=== PATIENT | male | born 1995 | race Caucasian/White ===

== ENCOUNTER 2016-08-08 14:28 | Emergency (ER) | payer BC ==
[2016-08-08 15:08] VITALS: BP 141/74; PULSE 64; RESP 18; TEMP 98.9
--- NOTE | 2016-08-08 15:28 | ED ---
Skin/Abscess/FB HPI - General Chief complaint: Skin/Abscess/Foreign Body Stated complaint: Rash on arms Time Seen by Provider: 08/08/16 15:17 Source: patient, RN notes reviewed Mode of arrival: ambulatory Limitations: no limitations - History of Present Illness Initial comments: Patient is a 21-year-old male presents to the emergency room for evaluation of rash. Patient states rash began about 2 weeks ago. Patient states the rash is extremely itchy. Patient denies putting anything on top of the rash or taking any certain medications to help with symptoms. Patient states the rash began on his bilateral arms and to his legs. Patient states that he was with his friend about a week ago who was recently diagnosed with scabies. Patient denies any new detergents, body washes, shampoos. Patient denies contact with any new plants in the house or animals. Patient denies fevers or chills. Patient denies shortness of breath. - Related Data Previous Rx's Medication Instructions Recorded Permethrin 5% Cream [Elimite] 1 applic TOPICAL DIRECTED #1 08/08/16 tube Allergies Allergy/AdvReac Type Severity Reaction Status Date / Time No Known Allergies Allergy Verified 08/08/16 15:08 Review of Systems ROS Statement: Those systems with pertinent positive or pertinent negative responses have been documented in the HPI. ROS Other: All systems not noted in ROS Statement are negative. Past Medical History Past Medical History: No Reported History History of Any Multi-Drug Resistant Organisms: None Reported Past Surgical History: No Surgical Hx Reported Past Psychological History: No Psychological Hx Reported Smoking Status: Current some day smoker Past Alcohol Use History: Occasional Past Drug Use History: None Reported General Exam - General Exam Comments Initial Comments: Sitting on exam bed in no acute distress. Limitations: no limitations General appearance: alert, in no apparent distress Head exam: Present: atraumatic, normocephalic, normal inspection Eye exam: Present: normal appearance ENT exam: Present: normal exam Neck exam: Present: normal inspection Respiratory exam: Present: normal lung sounds bilaterally. Absent: respiratory distress Cardiovascular Exam: Present: regular rate, normal rhythm, normal heart sounds Extremities exam: Present: normal inspection Back exam: Present: normal inspection Neurological exam: Present: alert, oriented X3, CN II-XII intact, normal gait Psychiatric exam: Present: normal affect, normal mood Skin exam: Present: warm, dry, intact, rash (Erythematous excoriated papular rash over the webbing of the b/l fingers of bilateral hands, arms, bilateral feet and legs.) Course Vital Signs 08/08/16 15:05 Temperature 98.9 F Pulse Rate 64 Respiratory 18 Rate Blood Pressure 141/74 O2 Sat by Pulse 99 Oximetry Medical Decision Making - Medical Decision Making Patient is a 21-year-old male presents emergency room for evaluation of rash. Rash consistent with scabies. Will place patient on permethrin cream. Patient states he understands everything that was discussed with him. Return parameters discussed. Case discussed with Dr. Barbosa. Disposition Clinical Impression: Scabies Disposition: HOME SELF-CARE Condition: Good Instructions: Scabies (ED) Additional Instructions: Apply cream from head to toe and leave on for 8-14 hours. Wash off in the shower with soap and water. Repeat process in 7 days. Can take Benadryl as needed for discomfort. Please follow up with primary care provider in 1-2 days. If any new symptom arises or symptoms worsen, return to ER as soon as possible. Prescriptions: Permethrin 5% Cream [Elimite] 1 applic TOPICAL DIRECTED #1 tube Referrals: None,Stated [Primary Care Provider] - 1-2 days Time of Disposition: 15:26
== END 2016-08-08 15:45 | disposition home or self-care (01) ==
LOC: EC 14:28
DX: B86 Scabies (principal); F17.200 Nicotine dependence, unspecified, uncomplicated
CPT/HCPCS: 99282